=== PATIENT | female | born 1960 | race Caucasian/White ===

== ENCOUNTER → 2017-04-20 | Outpatient (CLI) | payer OTHER ==
[~2017-04-20] MED LIST: ASP325TEC PO; CA C1TAB26 PO; CALC-80 PO; GBPN100C PO; LETR2.5T4 PO; LNS30CCR PO; MULT1CAP27 PO
[2017-04-20 13:08] LABS: BASOPHILS % (AUTO) 0 % (0-10); EOSINOPHILS % (AUTO) 1 % (0-10); LYMPHOCYTES % (AUTO) 41 % (12-44); MEAN CORPUSCULAR HEMOGLOBIN 31 PG (25-34); MEAN CORPUSCULAR HGB CONC 34 G/DL (32-36); MEAN CORPUSCULAR VOLUME 91 FL (80-99); MEAN PLATELET VOLUME 9.7 FL (7.4-10.4); MONOCYTES # (AUTO) 0.4 X 10^3 (0.0-1.0); MONOCYTES % (AUTO) 9 % (0-12); NEUTROPHILS # (AUTO) 2.3 X 10^3 (1.8-7.8); NEUTROPHILS % (AUTO) 49 % (42-75); PLATELET COUNT 223 10^3/uL (130-400); RED BLOOD COUNT 4.23 10^6/uL (4.35-5.85); RED CELL DISTRIBUTION WIDTH 12.8 % (10.0-14.5); WHITE BLOOD COUNT 4.8 10^3/uL (4.3-11.0)
[2017-04-20 13:39] LABS: ALANINE AMINOTRANSFERASE 19 U/L (0-55); ALBUMIN 4.5 GM/DL (3.2-4.5); ANION GAP 10 MMOL/L (5-14); ASPARTATE AMINO TRANSFERASE 24 U/L (5-34); BILIRUBIN,TOTAL 0.3 MG/DL (0.1-1.0); BLOOD UREA NITROGEN 16 MG/DL (7-18); BUN/CREATININE RATIO 19; CALCIUM 10.3 MG/DL (8.5-10.1); CARBON DIOXIDE 27 MMOL/L (21-32); CHLORIDE 105 MMOL/L (98-107); CREATININE SERUM 0.85 MG/DL (0.60-1.30); GFR ESTIMATED > 60; GLUCOSE 99 MG/DL (70-105); POTASSIUM 4.3 MMOL/L (3.6-5.0); SODIUM 142 MMOL/L (135-145); TOTAL PROTEIN 7.2 GM/DL (6.4-8.2)
== END ==
LOC: ONC 12:49
PROVIDERS: ATTEND Nurse Practitioner Adult Health
DX: Z08 Encounter for follow-up examination after completed treatment for malignant neoplasm (principal); Z85.3 Personal history of malignant neoplasm of breast; M85.88 Other specified disorders of bone density and structure, other site
CPT/HCPCS: 36415; 80053; 85025; 99213

== ENCOUNTER → 2017-05-18 | Outpatient (CLI) | payer OTHER ==
--- NOTE | 2017-05-18 21:29 | Diagnostic Imaging Report ---
Right breast diagnostic mammogram with tomography. The current study was also evaluated with a Computer Aided Detection (CAD) system. INDICATION: History of left breast cancer status post mastectomy. COMPARISON: 04/24/16. FINDINGS: The right breast is composed of heterogeneously dense parenchyma which may decrease mammographic sensitivity. There are punctate calcifications seen. No mass, architectural distortion or suspicious cluster of calcification is identified with overall appearance of the right breast similar to prior exams. IMPRESSION: Stable mammographic findings with no evidence of malignancy. Dense breasts tissue may obscure subtle underlying abnormality, however. Self screening exam and clinical screening in addition to annual screening mammogram is recommended. ACR BI-RADS Category 2: Benign findings. Result letter will be mailed to the patient. Note: At least 10% of breast cancer is not imaged by mammography. Dictated by: Dictated on workstation # [id number]
== END ==
LOC: RAD 10:27
PROVIDERS: ATTEND Internal Medicine Hematology & Oncology
DX: C50.812 Malignant neoplasm of overlapping sites of left female breast (principal); Z90.12 Acquired absence of left breast and nipple

== ENCOUNTER → 2018-04-20 | Outpatient (CLI) | payer OTHER ==
[2018-04-20 15:09] LABS: BASOPHILS % (AUTO) 0 % (0-10); EOSINOPHILS % (AUTO) 1 % (0-10); HEMATOCRIT 36 % (35-52); HEMOGLOBIN 12.6 G/DL (11.5-16.0); LYMPHOCYTES # (AUTO) 1.6 X 10^3 (1.0-4.0); LYMPHOCYTES % (AUTO) 36 % (12-44); MEAN CORPUSCULAR HEMOGLOBIN 32 PG (25-34); MEAN CORPUSCULAR HGB CONC 35 G/DL (32-36); MEAN CORPUSCULAR VOLUME 91 FL (80-99); MEAN PLATELET VOLUME 10.1 FL (7.4-10.4); MONOCYTES # (AUTO) 0.5 X 10^3 (0.0-1.0); MONOCYTES % (AUTO) 10 % (0-12); NEUTROPHILS # (AUTO) 2.4 X 10^3 (1.8-7.8); NEUTROPHILS % (AUTO) 53 % (42-75); PLATELET COUNT 211 10^3/uL (130-400); RED BLOOD COUNT 3.97 10^6/uL (4.35-5.85); RED CELL DISTRIBUTION WIDTH 12.5 % (10.0-14.5); WHITE BLOOD COUNT 4.6 10^3/uL (4.3-11.0)
[2018-04-20 15:30] LABS: ALANINE AMINOTRANSFERASE 23 U/L (0-55); ALBUMIN 4.6 GM/DL (3.2-4.5); ALKALINE PHOSPHATASE 68 U/L (40-136); BILIRUBIN,TOTAL 0.3 MG/DL (0.1-1.0); BUN/CREATININE RATIO 18; CALCIUM 10.1 MG/DL (8.5-10.1); CARBON DIOXIDE 26 MMOL/L (21-32); CHLORIDE 106 MMOL/L (98-107); CREATININE SERUM 0.87 MG/DL (0.60-1.30); GFR ESTIMATED > 60; GLUCOSE 95 MG/DL (70-105); POTASSIUM 4.9 MMOL/L (3.6-5.0); SODIUM 139 MMOL/L (135-145); TOTAL PROTEIN 7.1 GM/DL (6.4-8.2)
== END ==
LOC: ONC 14:47
PROVIDERS: ATTEND Internal Medicine Hematology & Oncology
DX: Z08 Encounter for follow-up examination after completed treatment for malignant neoplasm (principal); Z85.3 Personal history of malignant neoplasm of breast; M85.80 Other specified disorders of bone density and structure, unspecified site; Z79.82 Long term (current) use of aspirin; Z79.899 Other long term (current) drug therapy; Z90.12 Acquired absence of left breast and nipple; Z92.21 Personal history of antineoplastic chemotherapy
CPT/HCPCS: 80053; 85025; 99213

== ENCOUNTER → 2018-06-10 | Outpatient (CLI) | payer OTHER ==
--- NOTE | 2018-06-10 09:17 | Diagnostic Imaging Report ---
Indication: Screening for osteoporosis. Correlation is made with prior exam from 08/26/2013. Bone mineral analysis of the lumbar spine and both hips was performed. Bone mineral density lumbar spine L2-L4 is 1.170 with T score -0.2. This compares with 1.168 and -0.1. Bone mineral density left femoral neck is 0.836 with T score -1.5. This compares with 0.864 and -1.2. Bone mineral density right femoral neck is 0.831 with T score -1.5. This compares to 0.860 and -1.3. Impression: Normal bone mineral density of the lumbar spine with osteopenia of bilateral femoral necks. Dictated by: Dictated on workstation # [id number]
--- NOTE | 2018-06-10 12:42 | Diagnostic Imaging Report ---
Indication: Routine screening. Comparison is made with prior mammogram from 05/18/2017 and 04/24/2016. 2-D and 3-D unilateral right screening mammography was performed with CAD. The right breast is heterogeneously dense, limiting the sensitivity of mammography. The overall parenchymal pattern appears stable. No mass or malignant-appearing microcalcifications are seen. The right axilla is unremarkable. Impression: BI-RADS category 1 No mammographic features suspicious for malignancy are identified. ACR BI-RADS Category 1: Negative. Result letter will be mailed to the patient. Note: At least 10% of breast cancer is not imaged by mammography. Dictated by: Dictated on workstation # [id number]
== END ==
LOC: RAD 07:49
PROVIDERS: ATTEND Internal Medicine Hematology & Oncology
DX: Z12.31 Encounter for screening mammogram for malignant neoplasm of breast (principal); Z13.820 Encounter for screening for osteoporosis; M85.89 Other specified disorders of bone density and structure, multiple sites; Z85.3 Personal history of malignant neoplasm of breast; Z78.0 Asymptomatic menopausal state
CPT/HCPCS: 77080

== ENCOUNTER → 2019-04-19 | Outpatient (CLI) | payer OTHER ==
[~2019-04-19] MED LIST changes: +ACHD5005 PO; +AMOX-358 PO
[2019-04-19 14:59] LABS: BASOPHILS % (AUTO) 1 % (0-10); EOSINOPHILS % (AUTO) 0 % (0-10); HEMATOCRIT 37 % (35-52); HEMOGLOBIN 12.2 G/DL (11.5-16.0); LYMPHOCYTES # (AUTO) 1.8 X 10^3 (1.0-4.0); LYMPHOCYTES % (AUTO) 37 % (12-44); MEAN CORPUSCULAR HEMOGLOBIN 30 PG (25-34); MEAN CORPUSCULAR HGB CONC 33 G/DL (32-36); MEAN CORPUSCULAR VOLUME 91 FL (80-99); MONOCYTES # (AUTO) 0.6 X 10^3 (0.0-1.0); MONOCYTES % (AUTO) 12 % (0-12); NEUTROPHILS # (AUTO) 2.5 X 10^3 (1.8-7.8); NEUTROPHILS % (AUTO) 50 % (42-75); PLATELET COUNT 201 10^3/uL (130-400); RED CELL DISTRIBUTION WIDTH 12.4 % (10.0-14.5)
[2019-04-19 15:22] LABS: ALANINE AMINOTRANSFERASE 22 U/L (0-55); ALBUMIN 4.4 GM/DL (3.2-4.5); ALKALINE PHOSPHATASE 78 U/L (40-136); BILIRUBIN,TOTAL 0.3 MG/DL (0.1-1.0); BUN/CREATININE RATIO 20; CALCIUM 9.9 MG/DL (8.5-10.1); CARBON DIOXIDE 27 MMOL/L (21-32); CHLORIDE 107 MMOL/L (98-107); CREATININE SERUM 0.85 MG/DL (0.60-1.30); GFR ESTIMATED > 60; GLUCOSE 92 MG/DL (70-105); POTASSIUM 4.7 MMOL/L (3.6-5.0); SODIUM 143 MMOL/L (135-145)
== END ==
LOC: ONC 14:46
PROVIDERS: ATTEND Internal Medicine Hematology & Oncology
DX: Z08 Encounter for follow-up examination after completed treatment for malignant neoplasm (principal); Z85.3 Personal history of malignant neoplasm of breast; M85.80 Other specified disorders of bone density and structure, unspecified site; Z79.82 Long term (current) use of aspirin; Z79.899 Other long term (current) drug therapy; Z90.12 Acquired absence of left breast and nipple; Z92.21 Personal history of antineoplastic chemotherapy
CPT/HCPCS: 36415; 80053; 82306; 85025; 99213

== ENCOUNTER 2019-04-24 07:18 | Day surgery (SDC) | payer OTHER ==
[~2019-04-24] VITALS: Ht 167.6 cm; Wt 63.5 kg
[2019-04-24] VITALS (8 sets, daily range): BP systolic 90–113; BP diastolic 45–73
[~2019-04-24 07:18] MED LIST changes: -ACHD5005 PO; -AMOX-358 PO
[2019-04-24] MEDS ORDERED: LACTATED RINGERS 1,000 ML IV ONE (07:38)
[2019-04-24] MEDS ORDERED: fentaNYL INJECTION 100 MCG/2 ML AMP IVP ONE ×2 (07:45→08:30)
[2019-04-24] MEDS ORDERED: ONDANSETRON 4 MG/2 ML (SDV) Z0FRAN IVP ONE (07:45)
[2019-04-24 07:52] LABS: BASOPHILS % (AUTO) 0 % (0-10); EOSINOPHILS % (AUTO) 0 % (0-10); HEMATOCRIT 40 % (35-52); HEMOGLOBIN 13.6 G/DL (11.5-16.0); LYMPHOCYTES # (AUTO) 1.1 X 10^3 (1.0-4.0); LYMPHOCYTES % (AUTO) 6 % (12-44); MEAN CORPUSCULAR HEMOGLOBIN 31 PG (25-34); MEAN CORPUSCULAR HGB CONC 34 G/DL (32-36); MEAN CORPUSCULAR VOLUME 90 FL (80-99); MEAN PLATELET VOLUME 10.2 FL (7.4-10.4); MONOCYTES # (AUTO) 1.2 X 10^3 (0.0-1.0); MONOCYTES % (AUTO) 7 % (0-12); NEUTROPHILS # (AUTO) 15.5 X 10^3 (1.8-7.8); NEUTROPHILS % (AUTO) 87 % (42-75); PLATELET COUNT 192 10^3/uL (130-400); RED CELL DISTRIBUTION WIDTH 12.5 % (10.0-14.5); WHITE BLOOD COUNT 17.7 10^3/uL (4.3-11.0)
--- NOTE | 2019-04-24 07:56 | ED Abdominal Pain ---
General Chief Complaint: Abdominal/GI Problems Stated Complaint: ABD PAIN Nursing Triage Note: Ambulatory to rm 5 with complaint of abdominal pain that began on Thursday. Pt reports diffuse lower abdominal pain that is now worse on the R side. Pt reports fever of 101 at home yesterday. Pt reports decreased appetite, and last BM this morning. Pt denies dysuria and frequency. Pt reports starting omeprazole Thursday. Sepsis Screen: No Definite Risk (ASHLEY GRIFFITH) History of Present Illness Date Seen by Provider: Apr 24, 2019 Time Seen by Provider: 07:40 Initial Comments A 58 yo Female presents to the ER complaining of lower abdominal pain. The pain started on Thursday and has not improved. The pain does not radiate and is located diffusely throughout the RLQ and LLQ. The pain does come and go and currently the pain is a 3/10. Ibuprofen does seem to make it better. She reports having fevers, and occasional chills. (ASHLEY GRIFFITH) Time Seen by Provider: 07:22 Initial Comments This patient was interviewed, seen, and examined by me along with Ashley Griffith, MS 3. I agree with MS history history with the following additions and corrections. Patient states pain started 3 days ago. She has had associated nausea and loss of appetite. Pain seems to extend throughout the lower abdomen but most concentrated in the right lower quadrant. She reports pain was a 10 on the pain scale at its worst. She has had some minor back aching associated with this pain. She denies any changes in bowel movements with no constipation or diarrhea. She reports a fever at home yesterday up to 101. She has had no urinary symptoms such as dysuria or hematuria. She is afebrile at present. Pain is waxing and waning but has been constantly present for the past 3 days. (BRENDA RANDLE MD) Allergies and Home Medications Allergies Coded Allergies: Sulfa (Sulfonamide Antibiotics) (Unverified Allergy, Mild, CONFUSION, 03/05/09) Home Medications Aspirin 325 Mg Tabec, 325 MG PO DAILY, (Reported) Ca Cmb No.1/Vit D3/B-6/Fa/B12 1 Each Tablet, 1,000 UNITS PO DAILY, (Reported) Calcium Carbonate/Vitamin D3 1 Each Tablet, 1 EACH PO BID, (Reported) Gabapentin 100 Mg Cap, 100 MG PO DAILY, (Reported) Lansoprazole 30 Mg Cap, 30 MG PO DAILY, (Reported) Letrozole 2.5 Mg Tablet, 2.5 MG PO DAILY, (Reported) Multivitamins 1 Each Capsule, 1 EACH PO DAILY, (Reported) Patient Home Medication List Home Medication List Reviewed: Yes (BRENDA RANDLE MD) Review of Systems Review of Systems Constitutional: chills, fever EENTM: No Blurred Vision; Other (No acute changes in vision or hearing) Respiratory: Denies Shortness of Air Cardiovascular: Denies Chest Pain Gastrointestinal: Abdominal Pain; Denies Blood Streaked Stools, Denies Diarrhea; Nausea Genitourinary: Denies Burning, Denies Discharge, Denies Pain (ASHLEY GRIFFITH) Musculoskeletal: no symptoms reported Skin: no symptoms reported Psychiatric/Neurological: No Symptoms Reported Endocrine: No Symptoms Reported (BRENDA RANDLE MD) Past Izklkkw-Bjbmoe-Fnpgiy Hx Past Med/Social Hx: Reviewed and Corrections made (BRENDA RANDLE MD) Patient Social History Alcohol Use: Denies Use Recreational Drug Use: No Smoking Status: Never a Smoker 2nd Hand Smoke Exposure: No Recent Foreign Travel: No Contact w/Someone Who Travel: No Recent Infectious Disease Expo: No Recent Hopitalizations: No Physical Abuse: No Sexual Abuse: No (ASHLEY GRIFFITH) Past Medical History Surgeries: Yes (l side mastectomy) Respiratory: No Cardiac: Yes Irregular Heartbeat Neurological: No Reproductive Disorders: No Sexually Transmitted Disease: No Gastrointestinal: No Musculoskeletal: No Endocrine: No Cancer: Yes Breast Did You Recieve Any Treatments: Yes What Type of Treatment Did You: Surgical Intervention Psychosocial: No Blood Disorders: No (ASHLEY GRIFFITH) Cardiac (heart catheter in 2010 was no obstructive disease) Gastrointestinal: Yes Gastroesophageal Reflux What Type of Treatment Did You: Chemotherapy (BRENDA RANDLE MD) Physical Exam Vital Signs Vital Signs - First Documented 04/24/19 07:20 Temp 99.4 Pulse 90 Resp 14 B/P (MAP) 128/68 (88) Pulse Ox 99 O2 Delivery Room Air (BRENDA RANDLE MD) Vital Signs Capillary Refill : Less Than 3 Seconds (ASHLEY GRIFFITH) Height/Weight/BMI Height: 5'6.00" Weight: 140lbs. oz. [id number]; BMI Method:Stated (ASHLEY GRIFFITH) General Appearance: WD/WN, no apparent distress HEENT: PERRL/EOMI, normal ENT inspection, other (oropharynx somewhat dry) Neck: normal inspection Respiratory: lungs clear, normal breath sounds, no respiratory distress, no accessory muscle use Cardiovascular: regular rate, rhythm, no edema, no murmur Gastrointestinal: normal bowel sounds, soft, tenderness (throughout the lower abdomen, most prominent in the right lower quadrant. Psoas sign negative. Slight rebound tenderness. Rovsing sign and positive.) Extremities: normal inspection, no pedal edema Neurologic/Psychiatric: setter helper II-XII nml as tested, no motor/sensory deficits, alert, normal mood/affect, oriented x 3 Skin: normal color, warm/dry (BRENDA RANDLE MD) Focused Exam Lactate Level 04/24/19 09:55: Lactic Acid Level 2.38*H (BRENDA RANDLE MD) Lactic Acid Level Laboratory Tests Test 04/24/19 09:55 Lactic Acid Level 2.38 MMOL/L (0.50-2.00) *H (BRENDA RANDLE MD) Progress/Results/Core Measures Results/Orders Lab Results Laboratory Tests Test 04/24/19 07:23 04/24/19 08:11 04/24/19 09:55 Range/Units White Blood Count 17.7 H 4.3-11.0 10^3/uL Red Blood Count 4.42 4.35-5.85 10^6/uL Hemoglobin 13.6 11.5-16.0 G/DL Hematocrit 40 35-52 % Mean Corpuscular Volume 90 80-99 FL Mean Corpuscular Hemoglobin 31 25-34 PG Mean Corpuscular Hemoglobin Concent 34 32-36 G/DL Red Cell Distribution Width 12.5 10.0-14.5 % Platelet Count 192 130-400 10^3/uL Mean Platelet Volume 10.2 7.4-10.4 FL Neutrophils (%) (Auto) 87 H 42-75 % Lymphocytes (%) (Auto) 6 L 12-44 % Monocytes (%) (Auto) 7 0-12 % Eosinophils (%) (Auto) 0 0-10 % Basophils (%) (Auto) 0 0-10 % Neutrophils # (Auto) 15.5 H 1.8-7.8 X 10^3 Lymphocytes # (Auto) 1.1 1.0-4.0 X 10^3 Monocytes # (Auto) 1.2 H 0.0-1.0 X 10^3 Eosinophils # (Auto) 0.0 0.0-0.3 10^3/uL Basophils # (Auto) 0.0 0.0-0.1 10^3/uL Neutrophils % (Manual) 85 % Lymphocytes % (Manual) 8 % Monocytes % (Manual) 6 % Band Neutrophils 1 % Blood Morphology Comment NORMAL Sodium Level 140 135-145 MMOL/L Potassium Level 4.0 3.6-5.0 MMOL/L Chloride Level 102 98-107 MMOL/L Carbon Dioxide Level 23 21-32 MMOL/L Anion Gap 15 H 5-14 MMOL/L Blood Urea Nitrogen 15 7-18 MG/DL Creatinine 0.87 0.60-1.30 MG/DL Estimat Glomerular Filtration Rate > 60 BUN/Creatinine Ratio 17 Glucose Level 96 70-105 MG/DL Calcium Level 10.2 H 8.5-10.1 MG/DL Corrected Calcium 9.8 8.5-10.1 MG/DL Total Bilirubin 0.9 0.1-1.0 MG/DL Aspartate Amino Transf (AST/SGOT) 21 5-34 U/L Alanine Aminotransferase (ALT/SGPT) 20 0-55 U/L Alkaline Phosphatase 85 40-136 U/L Total Protein 7.8 6.4-8.2 GM/DL Albumin 4.5 3.2-4.5 GM/DL Lipase 25 8-78 U/L Urine Color YELLOW Urine Clarity CLEAR Urine pH 5 5-9 Urine Specific [place] 1.020 1.016-1.022 Urine Protein 2+ H NEGATIVE Urine Glucose (UA) NEGATIVE NEGATIVE Urine Ketones 4+ H NEGATIVE Urine Nitrite NEGATIVE NEGATIVE Urine Bilirubin NEGATIVE NEGATIVE Urine Urobilinogen 1 NORMAL MG/DL Urine Leukocyte Esterase 2+ H NEGATIVE Urine RBC (Auto) 3+ H NEGATIVE Urine RBC NONE /HPF Urine WBC 0-2 /HPF Urine Squamous Epithelial Cells 2-5 /HPF Urine Crystals NONE /LPF Urine Bacteria TRACE /HPF Urine Casts NONE /LPF Urine Mucus NEGATIVE /LPF Urine Culture Indicated NO Lactic Acid Level 2.38 *H 0.50-2.00 MMOL/L (BRENDA RANDLE MD) My Orders Orders - BRENDA RANDLE MD Fentanyl Injection (Sublimaze Injection (04/24/19 07:45) Ondansetron Injection (Zofran Injectio (04/24/19 07:45) Cbc With Automated Diff (04/24/19 07:38) Comprehensive Metabolic Panel (04/24/19 07:38) Lipase (04/24/19 07:38) Ua Culture If Indicated (04/24/19 07:38) Ed Iv/Invasive Line Start (04/24/19 07:38) Lactated Ringers (Lr 1000 Ml Iv Solution (04/24/19 07:38) Manual Differential (04/24/19 07:23) Fentanyl Injection (Sublimaze Injection (04/24/19 08:30) Ct Abd/Pelv W (Appendicitis) (04/24/19 08:53) Blood Culture (04/24/19 09:47) Lactic Acid Analyzer (04/24/19 09:47) Piperacillin/Tazobactam (Bulk) (Zosyn In (04/24/19 10:00) Morphine Injection (Morphine Injection (04/24/19 11:02) Succinylcholine Injection (Succinylcholi (04/24/19 11:16) Rocuronium 5 Ml Syringe (Rocuronium 5 Ml (04/24/19 11:16) Propofol Injection (Diprivan Injection) (04/24/19 11:16) Dexamethasone Injection (Decadron Inject (04/24/19 11:16) Ondansetron Injection (Zofran Injectio (04/24/19 11:16) Sevoflurane (15 Min) Inhal Peggy (Ultane ( (04/24/19 11:16) Fentanyl Injection (Sublimaze Injection (04/24/19 11:16) Midazolam Injection (Versed Injection) (04/24/19 11:17) (BRENDA RANDLE MD) Medications Given in ED Current Medications Medications Dose Ordered Sig/Harman Route Start Time Stop Time Status Last Admin Dose Admin Fentanyl Citrate 50 mcg ONCE ONCE IVP 04/24/19 07:45 04/24/19 07:46 DC 04/24/19 07:57 50 MCG Fentanyl Citrate 75 mcg ONCE ONCE IVP 04/24/19 08:30 04/24/19 08:31 DC 04/24/19 08:28 75 MCG Lactated Ringer's 1,000 ml @ 0 mls/hr Q0M ONCE IV 04/24/19 07:38 04/24/19 07:45 DC 04/24/19 07:54 1,000 MLS/HR Morphine Sulfate 10 mg STK-MED ONCE .ROUTE 04/24/19 11:02 04/24/19 11:10 DC 04/24/19 11:12 2 MG Ondansetron HCl 4 mg ONCE ONCE IVP 04/24/19 07:45 04/24/19 07:46 DC 04/24/19 07:51 4 MG Piperacillin Sod/ Tazobactam Sod 4.5 gm/Sodium Chloride 120 ml @ 240 mls/hr ONCE ONCE IV 04/24/19 10:00 04/24/19 10:29 DC 04/24/19 10:08 240 MLS/HR (BRENDA RANDLE MD) Vital Signs/I&O 04/24/19 07:20 Temp 99.4 Pulse 90 Resp 14 B/P (MAP) 128/68 (88) Pulse Ox 99 O2 Delivery Room Air (BRENDA RANDLE MD) Blood Pressure Mean: 88 Progress Progress Note : Time: 09:56 Progress Note Workup was pursued with labs and UA. Patient was found to have leukocytosis. Further evaluation was performed with CT scan which revealed appendicitis with perforation. Patient is being treated for sepsis related to perforated appendicitis. Her initial antibiotic therapy as with Zosyn in the ER. Blood cultures and lactic acid are being sent prior to antibiotic administration. She has received a total of 125 g of fentanyl. Zofran 4 mg IV was given for nausea. IV fluids were administered. Case was discussed with Dr. Mackey who plans to take her to surgery from the ER. (BRENDA RANDLE MD) Diagnostic Imaging Diagonstic Imaging: CT Plain Films/CT/US/NM/MRI: abdomen, pelvis Comments CT abdomen and pelvis viewed by me and report reviewed. See report below: NAME: ANGELINA MEJIA [facility] REC#: [id number] PT STATUS: REG ER : 1960 PHYSICIAN: BRENDA RANDLE MD ADMIT DATE: 04/24/19/ER Draft Date of Exam:04/24/19 CT ABD/PELV W (APPENDICITIS) PROCEDURE: CT abdomen and pelvis with contrast, rule out appendicitis. TECHNIQUE: Multiple contiguous axial images were obtained through the abdomen and pelvis after the administration of intravenous contrast. INDICATION: Lower abdominal pain, greater on the right side, fever. EXAMINATION: CT abdomen and pelvis with contrast dated 04/24/2019 FINDINGS: Diffuse inflammation is seen in the right lower quadrant with a small amount of free fluid noted. The appendix is diffusely enlarged and contains a calcification consistent with an appendicolith along its origin. The entire course of the appendix is diffusely distended with surrounding fluid and inflammatory change. Along the course of the appendix is a tiny collection of air which is likely a small contained rupture. A discrete measurable abscess is not appreciated at this time. Adjacent small bowel loops are slightly prominent likely reactive in nature. No free air seen in the remaining abdomen. The abdominal viscera demonstrates no acute abnormalities. There are multiple hypodensities throughout the liver, most of which are too small to characterize, others are likely cysts. The gallbladder and spleen normal. The adrenal glands unremarkable. Pancreas normal. Kidneys within normal limits. Small amount of free fluid in the pelvis. Linear hyperdensities within the lower pelvis likely vascular in nature. No acute osseous normality is appreciated. Degenerative findings noted in the osseous structures. Visualized lung bases unremarkable. IMPRESSION: 1. Findings consistent with acute appendicitis. Diffuse inflammation in the right lower quadrant is seen with a small contained perforation as noted. No abscess at this time. Called to Dr. Coronado at 9:39 a.m. by cvb. Dictated on workstation # [id number] Dict: [birth year]24 Trans: 04/24/19 0940 CVB [id number] Interpreted by: EJ LUJAN MD (BRENDA RANDLE MD) Departure Communication (Admissions) Time/Spoke to Admitting Phy: 09:55 Dr. Mackey (BRENDA RANDLE MD) Impression Primary Impression: Acute appendicitis with perforation and generalized peritonitis Qualified Codes: K35.20 - Acute appendicitis with generalized peritonitis, without abscess Additional Impression: Sepsis Qualified Codes: A41.9 - Sepsis, unspecified organism Disposition: 09 ADMITTED INPATIENT Condition: Improved Admissions Decision to Admit Reason: Admit from ER (General) Decision to Admit/Date: Apr 24, 2019 Time/Decision to Admit Time: 09:50 (BRENDA RANDLE MD) Departure-Patient Inst. Referrals: CHARLOTTE LOWRY MD (PCP/Family) Primary Care Physician ASHLEY GRIFFITH [facility] Apr 24, 2019 07:56 BRENDA RANDLE MD Apr 24, 2019 08:43
[2019-04-24 08:12] LABS: ALANINE AMINOTRANSFERASE 20 U/L (0-55); ALBUMIN 4.5 GM/DL (3.2-4.5); ALKALINE PHOSPHATASE 85 U/L (40-136); BILIRUBIN,TOTAL 0.9 MG/DL (0.1-1.0); BUN/CREATININE RATIO 17; CALCIUM 10.2 MG/DL (8.5-10.1); CARBON DIOXIDE 23 MMOL/L (21-32); CHLORIDE 102 MMOL/L (98-107); CREATININE SERUM 0.87 MG/DL (0.60-1.30); GFR ESTIMATED > 60; GLUCOSE 96 MG/DL (70-105); LIPASE 25 U/L (8-78); SODIUM 140 MMOL/L (135-145); TOTAL PROTEIN 7.8 GM/DL (6.4-8.2)
[2019-04-24 08:20] LABS: BILIRUBIN,URINE NEGATIVE (NEGATIVE); CLARITY,URINE CLEAR; COLOR,URINE YELLOW; GLUCOSE, URINE (UA) NEGATIVE (NEGATIVE); KETONES,URINE 4+ (NEGATIVE); LEUKOCYTE ESTERASE ,URINE 2+ (NEGATIVE); NITRITE,URINE NEGATIVE (NEGATIVE); PH,URINE 5 (5-9); PROTEIN,URINE 2+ (NEGATIVE); UROBILINOGEN,URINE 1 MG/DL (NORMAL)
[2019-04-24 08:38] LABS: BACTERIA,URINE TRACE /HPF; WBC,URINE 0-2 /HPF
[2019-04-24 08:47] LABS: BAND NEUTROPHILS 1 %; LYMPHOCYTES % (MANUAL) 8 %; MONOCYTES % (MANUAL) 6 %; NEUTROPHILS % (MANUAL) 85 %
[2019-04-24 08:48] LABS: RBC MORPH NORMAL
--- NOTE | 2019-04-24 09:41 | Diagnostic Imaging Report ---
PROCEDURE: CT abdomen and pelvis with contrast, rule out appendicitis. TECHNIQUE: Multiple contiguous axial images were obtained through the abdomen and pelvis after the administration of intravenous contrast. INDICATION: Lower abdominal pain, greater on the right side, fever. EXAMINATION: CT abdomen and pelvis with contrast dated 04/24/2019 FINDINGS: Diffuse inflammation is seen in the right lower quadrant with a small amount of free fluid noted. The appendix is diffusely enlarged and contains a calcification consistent with an appendicolith along its origin. The entire course of the appendix is diffusely distended with surrounding fluid and inflammatory change. Along the course of the appendix is a tiny collection of air which is likely a small contained rupture. A discrete measurable abscess is not appreciated at this time. Adjacent small bowel loops are slightly prominent likely reactive in nature. No free air seen in the remaining abdomen. The abdominal viscera demonstrates no acute abnormalities. There are multiple hypodensities throughout the liver, most of which are too small to characterize, others are likely cysts. The gallbladder and spleen normal. The adrenal glands unremarkable. Pancreas normal. Kidneys within normal limits. Small amount of free fluid in the pelvis. Linear hyperdensities within the lower pelvis likely vascular in nature. No acute osseous normality is appreciated. Degenerative findings noted in the osseous structures. Visualized lung bases unremarkable. IMPRESSION: 1. Findings consistent with acute appendicitis. Diffuse inflammation in the right lower quadrant is seen with a small contained perforation as noted. No abscess at this time. Called to Dr. Coronado at 9:39 a.m. by cvb. Dictated by: Dictated on workstation # [id number]
--- NOTE | 2019-04-24 09:44 | NUR ---
Pt removed jewelry and gave to in preparation for surgery.
[2019-04-24] MEDS ORDERED: PIPERACILLIN/TAZOBACTAM (BULK) 4.5 GM in NS (IVPB) 100 ML IV ONE (10:00)
--- NOTE | 2019-04-24 10:55 | NUR ---
Dr Mackey in room with pt.
[2019-04-24] MEDS ORDERED: morphine INJ 10 MG/ML 1ML (SYR OR VIAL) ONE (11:02)
--- NOTE | 2019-04-24 11:06 | NUR ---
verbal order from Dr. Mackey for Morphine 2 mg at this time.
[2019-04-24] MEDS ORDERED: fentaNYL INJECTION 100 MCG/2 ML AMP ONE (11:16)
[2019-04-24] MEDS ORDERED: ROCURONIUM 10 MG/ML 5 ML SYRINGE IV ONE (11:16)
[2019-04-24] MEDS ORDERED: proPOfol 200 MG/20 ML (DIPRIVAN) VIAL IV ONE (11:16)
[2019-04-24] MEDS ORDERED: ONDANSETRON 4 MG/2 ML (SDV) Z0FRAN ONE (11:16)
[2019-04-24] MEDS ORDERED: DEXAMETHASONE 10 MG/ML (DECADRON) 1 ML VIAL ONE (11:16)
[2019-04-24] MEDS ORDERED: SEVOFLURANE (ULTANE) 15 ML INHAL SOLN ONE (11:16)
[2019-04-24] MEDS ORDERED: SUCCINYLCHOLINE INJ 100 MG/5 ML SYR ONE (11:16)
[2019-04-24] MEDS ORDERED: MIDAZOLAM 2 MG/2 ML (VERSED) VIAL ONE (11:17)
--- NOTE | 2019-04-24 11:17 | Consultation - Surgery ---
History of Present Illness History of Present Illness Patient Consulted On(parveen/time) 04/24/19 11:12 Time Seen by Provider: 10:48 History of Present Illness Surgery asked to consult regarding appendicitis. HPI per ED: This patient was interviewed, seen, and examined by me along with Mason Griffith, MS 3. I agree with MS history history with the following additions and corrections. Patient states pain started 3 days ago. She has had associated nausea and loss of appetite. Pain seems to extend throughout the lower abdomen but most concentrated in the right lower quadrant. She reports pain was a 10 on the pain scale at its worst. She has had some minor back aching associated with this pain. She denies any changes in bowel movements with no constipation or diarrhea. She reports a fever at home yesterday up to 101. She has had no urinary symptoms such as dysuria or hematuria. She is afebrile at present. Pain is waxing and waning but has been constantly present for the past 3 days. When I spoke to pt she stated the pain started Thursday morning and she was trying to ignore it. It got a little better this am and then got bad again. She has not been able to eat anything since Thursday. She describes a constant sharp pain across lower abdomen. Nothing but the pain medicine has made it any better. It is worse when she moves and bumps on the car ride. Allergies and Home Medications Allergies Coded Allergies: Sulfa (Sulfonamide Antibiotics) (Unverified Allergy, Mild, CONFUSION, 03/05/09) Home Medications Aspirin 325 Mg Tabec, 325 MG PO DAILY, (Reported) Ca Cmb No.1/Vit D3/B-6/Fa/B12 1 Each Tablet, 1,000 UNITS PO DAILY, (Reported) Calcium Carbonate/Vitamin D3 1 Each Tablet, 1 EACH PO BID, (Reported) Gabapentin 100 Mg Cap, 100 MG PO DAILY, (Reported) Lansoprazole 30 Mg Cap, 30 MG PO DAILY, (Reported) Letrozole 2.5 Mg Tablet, 2.5 MG PO DAILY, (Reported) Multivitamins 1 Each Capsule, 1 EACH PO DAILY, (Reported) Patient Home Medication List Home Medication List Reviewed: Yes Past Rpaejmd-Hzaazi-Zojcmi Hx Patient Social History Alcohol Use: Denies Use Recreational Drug Use: No Smoking Status: Never a Smoker 2nd Hand Smoke Exposure: No Recent Foreign Travel: No Contact w/Someone Who Travel: No Recent Infectious Disease Expo: No Recent Hopitalizations: No Surgeries History of Surgeries: Yes (l side mastectomy) Surgeries: Cardiac (heart catheter in 2010 was no obstructive disease) Respiratory History of Respiratory Disorde: No Cardiovascular History of Cardiac Disorders: Yes Cardiac Disorders: Irregular Heartbeat Neurological History of Neurological Disord: No Reproductive System Hx Reproductive Disorders: No Sexually Transmitted Disease: No Gastrointestinal History of Gastrointestinal Di: Yes Gastrointestinal Disorders: Gastroesophageal Reflux Musculoskeletal History of Musculoskeletal Dis: No Endocrine History of Endocrine Disorders: No Cancer History of Cancer: Yes Cancer: Breast Psychosocial History of Psychiatric Problem: No Blood Transfusions History of Blood Disorders: No Family Medical History Significant Family History: Other Conditions/Hx (Father had high cholesterol) Review of Systems-General Constitutional: chills, diaphoresis, malaise, weakness EENTM: No blurred vision, No double vision, No mouth pain, No mouth swelling, No epistaxis Respiratory: No cough, No dyspnea on exertion, No hemoptysis, No short of breath Cardiovascular: No chest pain, No edema, No palpitations Gastrointestinal: abdominal pain; No hematemesis, No jaundice; loss of appetite; No melena; nausea; No vomiting Genitourinary: No dysuria, No frequency, No hematuria Musculoskeletal: No joint pain, No joint swelling, No muscle pain, No muscle stiffness Skin: No change in color, No change in hair/nails, No lesions Psychiatric/Neurological: Denies Anxiety, Denies Depressed, Denies Seizure, Denies Tremors Other pt denies any hx of abnormal bleeding or bruising, no heat or cold intolerance Physical Exam-General Problems Physical Exam Vital Signs Vital Signs - First Documented 04/24/19 07:20 Temp 99.4 Pulse 90 Resp 14 B/P (MAP) 128/68 (88) Pulse Ox 99 O2 Delivery Room Air Capillary Refill : Less Than 3 Seconds General Appearance: WD/WN, moderate distress, thin Eyes: Bilateral Eye PERRL, Bilateral Eye EOMI HEENT: pharynx normal; No scleral icterus (R), No scleral icterus (L) Neck: non-tender, supple; No thyromegaly Respiratory: chest non-tender, lungs clear, normal breath sounds, no respiratory distress, no accessory muscle use Cardiovascular: regular rate, rhythm, no edema, no murmur Gastrointestinal: No no organomegaly, No no pulsatile mass, No distended; guarding (almost involuntary), tenderness (diffusely across lower abdomen, but more in right side), hernia (umbilical) Rectal: deferred Back: no CVA tenderness, no vertebral tenderness Extremities: normal range of motion, non-tender, normal inspection, no pedal edema, no calf tenderness Neurologic/Psychiatric: 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 II-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 nml as tested, no motor/sensory deficits, alert, normal mood/affect, oriented x 3 Skin: normal color, warm/dry Lymphatic: no adenopathy (neck, axilla or groin) Data Review Labs Laboratory Tests 04/24/19 07:23: White Blood Count 17.7H, Red Blood Count 4.42, Hemoglobin 13.6, Hematocrit 40, Mean Corpuscular Volume 90, Mean Corpuscular Hemoglobin 31, Mean Corpuscular Hemoglobin Concent 34, Red Cell Distribution Width 12.5, Platelet Count 192, Mean Platelet Volume 10.2, Neutrophils (%) (Auto) 87H, Lymphocytes (%) (Auto) 6L , Monocytes (%) (Auto) 7, Eosinophils (%) (Auto) 0, Basophils (%) (Auto) 0, Neutrophils # (Auto) 15.5H, Lymphocytes # (Auto) 1.1, Monocytes # (Auto) 1.2H, Eosinophils # (Auto) 0.0, Basophils # (Auto) 0.0, Neutrophils % (Manual) 85, Lymphocytes % (Manual) 8, Monocytes % (Manual) 6, Band Neutrophils 1, Blood Morphology Comment NORMAL, Sodium Level 140, Potassium Level 4.0, Chloride Level 102, Carbon Dioxide Level 23, Anion Gap 15H, Blood Urea Nitrogen 15, Creatinine 0.87, Estimat Glomerular Filtration Rate > 60, BUN/Creatinine Ratio 17, Glucose Level 96, Calcium Level 10.2H, Corrected Calcium 9.8, Total Bilirubin 0.9, Aspartate Amino Transf (AST/SGOT) 21, Alanine Aminotransferase (ALT/SGPT) 20, Alkaline Phosphatase 85, Total Protein 7.8, Albumin 4.5, Lipase 25 04/24/19 08:11: Urine Color YELLOW, Urine Clarity CLEAR, Urine pH 5, Urine Specific [place] 1.020, Urine Protein 2+H, Urine Glucose (UA) NEGATIVE, Urine Ketones 4+H, Urine Nitrite NEGATIVE, Urine Bilirubin NEGATIVE, Urine Urobilinogen 1, Urine Leukocyte Esterase 2+H, Urine RBC (Auto) 3+H, Urine RBC NONE, Urine WBC 0-2, Urine Squamous Epithelial Cells 2-5, Urine Crystals NONE, Urine Bacteria TRACE, Urine Casts NONE, Urine Mucus NEGATIVE, Urine Culture Indicated NO 04/24/19 09:55: Lactic Acid Level 2.38*H Assessment/Plan Assessment/Plan Assessment/Plan Acute Appendicitis probably ruptured Plan is NPO, IV fluids, pain control, anti-emetics, IV ABX. Will go to the OR for Laparoscopic Appendectomy possible open. Discussed risks and complications with pt and family; not limited to pain, bleeding, infection, scar and damage to intestine. All questions answered to their satisfaction. Pt will most likely stay over at least one night, depends on how bad the perforation is. VIVIENNE BUSTILLOS DO Apr 24, 2019 11:17
[2019-04-24] MEDS ORDERED: BUP/EPI 0.5% 1:200,000 (MARCAINE) 10ML VIAL IJ ONE (11:29)
[2019-04-24] MEDS ORDERED: PHENYLEPHRINE 100 MCG/ML 10 ML (ANESTHESIA) SYR ONE (11:42)
[2019-04-24] MEDS ORDERED: HYDROmorphone 2 MG/ML VIAL (DILAUDID) ONE (12:04)
[2019-04-24] MEDS ORDERED: NEOSTIGMINE 3 MG/3 ML VIAL ONE (12:44)
[2019-04-24] MEDS ORDERED: GLYCOPYRROLATE 0.2 MG/ML (ROBINUL) 2 ML VIAL ONE (12:44)
[2019-04-24] MEDS: KETOROLAC 30 MG/ML VIAL IVP SCH ×2 (13:00→18:45)
--- NOTE | 2019-04-24 13:04 | Progress Note-Post Operative ---
Post-Operative Progess Note Surgeon (s)/Gamewell Operator (s) Surgeon VIVIENNE BUSTILLOS DO Gamewell Operator: Elias Raygoza MS III Pre-Operative Diagnosis Acute Appy possibly ruptured Post-Operative Diagnosis Same Necrotic to base onto cecum Procedure & Operative Findings Date of Procedure 04/24/19 Procedure Performed/Findings Lap Appy with partial Cecectomy Anesthesia Type GET Estimated Blood Loss Estimated blood loss (mL): scant Specimens/Packing Specimens Removed appy with small portion of cecum VIVIENNE BUSTILLOS DO Apr 24, 2019 13:04
[2019-04-24] MEDS ORDERED: HYDROcodone/APAP 5 MG/325 MG (LORTAB) TAB PO PRN (13:15)
[2019-04-24] MEDS ORDERED: ONDANSETRON 4 MG/2 ML (SDV) Z0FRAN IVP PRN ×2 (13:15)
[2019-04-24] MEDS ORDERED: HYDROmorphone 2 MG/ML VIAL (DILAUDID) IV ONE (13:15)
[2019-04-24] MEDS: LACTATED RINGERS 1,000 ML IV SCH (15:15)
[2019-04-24] MEDS ORDERED: CATHETER FLUSH 10 ML SYR IV PRN (15:15)
[2019-04-24] MEDS: ACETAMINOPHEN 500 MG TAB (TYLENOL) PO SCH ×2 (15:34→23:40)
[2019-04-24] MEDS: PIPERACILLIN/TAZOBACTAM (BULK) 4.5 GM in NS (IVPB) 100 ML IV SCH ×2 (16:50→23:39)
[2019-04-25] VITALS: BP 89/52
[2019-04-25] MEDS: KETOROLAC 30 MG/ML VIAL IVP SCH ×2 (01:49→06:16)
[2019-04-25] MEDS: LACTATED RINGERS 1,000 ML IV SCH ×2 (02:44→08:07)
[2019-04-25 04:00] VITALS: BP 84/50
[2019-04-25] MEDS: ACETAMINOPHEN 500 MG TAB (TYLENOL) PO SCH (06:16)
[2019-04-25 08:00] VITALS: BP 100/62
[2019-04-25] MEDS ORDERED: PANTOPRAZOLE 40 MG (PROTONIX) VIAL IVP SCH (09:00)
[2019-04-25] MEDS: PIPERACILLIN/TAZOBACTAM (BULK) 4.5 GM in NS (IVPB) 100 ML IV SCH (09:08)
--- NOTE | 2019-04-25 09:50 | Progress Note - Surgery ---
ASHLEY ROMERO,MED STUDENT 04/25/19 0950: Subjective Date Seen by a Provider: Apr 25, 2019 Time Seen by a Provider: 09:10 Subjective/Events-last exam Pt feeling well, accompanied by . Admits mild midline, diffuse, abdominal incisional soreness that began last night. Thinks her abdomen might be slightly distended and has had a few bowel movements, all diarrhea. Review of Systems General: No Chills, No Night Sweats, No Fatigue, No Malaise Pulmonary: No Dyspnea, No Cough Cardiovascular: No: Chest Pain Gastrointestinal: Abdominal Pain, Diarrhea; No: Nausea, Vomiting Focused Exam Lactate Level 04/24/19 09:55: Lactic Acid Level 2.38*H 04/24/19 17:05: Lactic Acid Level 0.73 Objective Exam Vital Signs Date Time Temp Pulse Resp B/P (MAP) Pulse Ox O2 Delivery O2 Flow Rate FiO2 04/25/19 09:00 Room Air 04/25/19 08:00 98.1 61 20 100/62 (75) 100 Room Air 04/25/19 04:00 98.2 56 18 84/50 (61) 93 Room Air 04/25/19 00:00 98.5 62 18 89/52 (64) Room Air 04/24/19 21:00 96 Room Air 5.00 04/24/19 20:27 99.0 67 16 95/59 (71) 96 Room Air 04/24/19 15:40 Room Air 04/24/19 15:30 99.9 77 16 90/52 (65) 93 Room Air 04/24/19 14:05 Room Air 04/24/19 14:05 Room Air 04/24/19 13:50 OxyMask 5 04/24/19 13:50 99.9 16 97 Room Air 04/24/19 13:40 16 98 OxyMask 5 04/24/19 13:35 OxyMask 5 04/24/19 13:30 16 OxyMask 5 04/24/19 13:20 OxyMask 04/24/19 13:20 16 100 OxyMask 10 04/24/19 13:15 16 99 OxyMask 10 04/24/19 13:07 100.7 16 99 10 04/24/19 13:07 OxyMask 10 04/24/19 11:30 100.4 87 14 128/68 (88) 99 Room Air I & O 04/25/19 07:00 Intake Total 2940 ml Output Total 500 ml Balance 2440 ml Capillary Refill : Less Than 3 Seconds General Appearance: No Apparent Distress, WD/WN HEENT: PERRL/EOMI; No Pale Conjunctivae (L), No Pale Conjunctivae (R) Neck: Normal Inspection, Supple Respiratory: Chest Non Tender, No Accessory Muscle Use, No Respiratory Distress Gastrointestinal: normal bowel sounds, soft, distended (minimal distension ), tenderness (diffuse soreness with midline incisional tenderness. ), other (in cisions clean with overlying adhesive, no erythema or swelling) Neurologic/Psychiatric: Alert, Oriented x3, No Motor/Sensory Deficits, Normal Mood/Affect Skin: Normal Color, Warm/Dry, Other (as above, incisions clean, affixed with adhesive and showing no erythema or swelling) Results Lab Laboratory Tests 04/24/19 09:55: Lactic Acid Level 2.38*H 04/24/19 17:05: Lactic Acid Level 0.73 Assessment/Plan Assessment/Plan Assessment/Plan Acute Appendicitis 1 day S/P Appendectomy. Continue antibiotic treatment, pain control, and ambulation as tolerated. Consider discharging. Clinical Quality Measures DVT/VTE Risk/Contraindication: Risk Factor Score Per Nursin RFS Level Per Nursing on Admit: 2=Moderate IVÁN MACKEY DO 04/25/19 1459: Supervisory-Addendum Brief Verification & Attestation Participated in pt care: history, MDM, physical Personally performed: exam, history, MDM Care discussed with: Medical Student Procedures: n/a Verification and Attestation of Medical Student E/M Service A medical student performed and documented this service in my presence. I reviewed and verified all information documented by the medical student and made modifications to such information, when appropriate. I personally performed the physical exam and medical decision making. Iván Mackey, Apr 25, 2019,14:59 ASHLEY ROMERO,MED STUDENT Apr 25, 2019 09:50 IVÁN MACKEY DO Apr 25, 2019 14:59
[2019-04-25] MEDS ORDERED: ACHD5005 PO (11:05)
[2019-04-25] MEDS ORDERED: AMOX-358 PO (11:05)
--- NOTE | 2019-04-25 11:07 | Discharge Inst-Surgical ---
Discharge Inst-Surgical Depart Medication/Instructions New, Converted or Re-Newed RX: RX Given to Pt/Family Patient Instructions Follow up Appt: Make appointment for 1 week or when back from trip. [phone] Instructions: No lifting greater than 20 pounds. No strenuous activity. May shower in 24 hours, no tub bath or soaking. Use incentive spirometer at home as directed. No Smoking Skin/Wound Care: May remove bandages in am. You need to leave the Dermabond on incision it will fall off on it's own. Symptoms to Report: Appetite Changes, Extremity Discoloration, Numbness/Tingling, Swelling Increased, Bleeding Excessive, Eyesight Changes, Pain Increased, Urine Color Change, Constipation(Persistent), Fever over 101 degree F, Pain/Pressure in chest, Urinating Difficulty, Cough Up/Vomit Blood, Heart Beat Irreg/Pounding, Pain/Pressure in jaw, Cramps in feet or legs, Lightheadedness, Pain/Pressure in shoulder, Diarrhea(Persistent), Memory Changes Suddenly, Questions/Concerns, Weight gain consecutive days, Dizziness/Fainting, Nausea/Vomiting, Shortness of Breath, Weight gain over 2 pounds If questions or concerns contact your physician Or seek help at emergency department. Activity Activity as Tolerated: Yes Activity Instructions: Avoid Stress to Incision Driving Instructions: No Driving/Refer to Dr. Ulloa Discharge Diet: No Restrictions Diet After 24 Hours: Clear Liquid if Nauseous If Any Problems/Questions/Issu: Contact Your Physician, Go to Emergency Room Skin/Wound Care Infection Signs and Symptoms: Increased Redness, Foul Odor of Wound, Increased Drainage, Skin Itchy or Has a Rash, Increased Swelling, Temperature Above 101 F Bathing Instructions: Shower Stitches/Sandy/Dermabond Dis: Dermabond Ice Pack: Ice On and Off Site (as needed for pain) VIVIENNE BUSTILLOS DO Apr 25, 2019 11:07
--- NOTE | 2019-04-25 11:08 | NUR ---
Initial visit with the pt and her , Ronni. Pt is [employer] and a member of [employer] [employer] [facility] [employer]. The pt said she anticipated discharge today, and planned to walk the hallways this morning.
--- NOTE | 2019-04-25 11:24 | OPERATIVE REPORT ---
DATE OF SERVICE: 04/24/2019 PREOPERATIVE DIAGNOSIS: Acute appendicitis, possibly ruptured. POSTOPERATIVE DIAGNOSIS: Acute appendicitis, possibly ruptured with necrotic appendix down all the way to the base. PROCEDURE PERFORMED: Laparoscopic appendectomy with removal of very tiny portion of cecum. SURGEON: Iván Mackey DO TREATMENT COORDINATOR: Elias Raygoza, medical student, level 3. ANESTHESIA: General endotracheal tube. SPECIMEN: Appendix. BLOOD LOSS: Scant. FLUIDS: Per Anesthesia. POSTOPERATIVE CONDITION: Stable. INDICATION FOR PROCEDURE: The patient is a 58-year-old female who has been having some right lower quadrant pain since Thursday, finally came in and noted to have a CAT scan performed, which was read as acute, possibly perforated appendicitis. FINDINGS: The patient had appendix, almost the whole thing was necrotic all the way to the base. Right on the cecum, it looked like there was a small hole on the right towards the base of the appendix almost at the cecum. She had a lot of loops of bowel that were adhesed together, minimal murky fluid, did not really see any purulent fluid or fecal material in the abdomen. PROCEDURE NOTE: After informed consent was obtained, the patient was brought to the operating room, placed on operating table in supine position. She was sterilely prepped and draped in normal fashion. Local lidocaine was used to infiltrate the skin above the umbilicus and made an incision with #11 blade, carried down through the skin into the subcutaneous tissue and deepened down to subcutaneous tissue with Bovie electrocautery down to the fascia. Fascia was incised with Bovie electrocautery and bluntly entered the abdomen, swept a finger around, then placed #0 Vicryl [id number] suture and placed an 11 mm trocar port under direct visualization, created pneumoperitoneum and then placed 2 more ports in normal fashion using local lidocaine, 11 blade for stab incision and the VersaStep system, all done under direct visualization, one suprapubically and one in the left lower quadrant. The patient was then placed slightly Trendelenburg, noted some murky fluid in the pelvis, took a picture of this and then found the appendix, moved away some small intestine to find it. The entire appendix looked necrotic and was necrotic all the way down to the cecum. Able to identify the cecum and the terminal ileum, carefully started dissecting the appendix away with blunt dissection as well as with some hydrodissection and then coming across the mesoappendix with the LigaSure in a stepwise fashion, clamping, coagulating and transecting taking care again to stay away from terminal ileum and cecum. Once the appendix was completely freed up and noted there was necrotic all the way to the base, had switched to 5 mm camera and then brought an Endo-PATRICIA in the small portion of the cecum so we can get some good tissue. A clamp held for 30 seconds and then fired creating the staple line and dissecting, placed the bag in the abdomen, placed the appendix in the bag and then removed this through a supraumbilical incision. Placed the port back in the abdomen, had a good staple line at this point then copiously irrigated with normal saline about a liter and suctioned this out, opened all the bowel loops to make sure there is no purulent fluid or interloop abscesses and did not find any. I suctioned out all fluids. Placed the patient supine and then placed the omentum back over the portion of cecum and terminal ileum. At this point, I then removed all ports under direct visualization, allowed the pneumoperitoneum to escape, closed supraumbilical incision with #0 Vicryl, closing the fascia with #0 Vicryl suture previously placed. Copiously irrigated all incisions with normal saline, then closed the 2 small 5 mm incisions with a single interrupted 4-0 Monocryl subcuticular stitch, closed supraumbilical incision with 3 interrupted 4-0 Monocryl subcuticular stitches. Area was cleaned and dried and Dermabond was placed as well as Band-Aids. The patient tolerated the procedure well. Sponge, instrument and needle count correct at the end of the case. Job ID: [id number] DocumentID: [id number] Dictated Date: 04/24/2019 13:01:10 Tube Sizer And Cutter Operator Date: 04/24/2019 19:17:54 Dictated By: IVÁN MACKEY DO
[2019-04-25 11:41] VITALS: BP 100/62
--- NOTE | 2019-04-25 15:04 | Anesthesia-General Post-Op ---
General Patient Condition Mental Status/LOC: Same as Preop Cardiovascular: Satisfactory Nausea/Vomiting: Absent Respiratory: Satisfactory Pain: Controlled Complications: Absent Post Op Complications Complications None Follow Up Care/Instructions Patient Instructions None needed. Anesthesia/Patient Condition Patient Condition Patient discharged to home without any known complications and no apparent adverse anesthesia problems. No complications reported per nursing. PARKER LATHAM CRNA Apr 25, 2019 15:04
== END 2019-04-25 11:40 | disposition home or self-care (01) ==
LOC: EDUNIT# 07:18 → ER 07:19 → SDC 11:28 → 4TH 14:05 → SDC 04-25 11:40
PROVIDERS: ATTEND Surgery
DX: K35.20 Acute appendicitis with generalized peritonitis, without abscess (principal); K56.50 Intestinal adhesions [bands], unspecified as to partial versus complete obstruction; K21.9 Gastro-esophageal reflux disease without esophagitis; A41.9 Sepsis, unspecified organism; Z90.10 Acquired absence of unspecified breast and nipple; Z92.21 Personal history of antineoplastic chemotherapy; Z88.2 Allergy status to sulfonamides; Z79.82 Long term (current) use of aspirin
CPT/HCPCS: 36415; 74177; 80053; 81000; 83605; 83690; 85007; 85027; 87040; 94664

== ENCOUNTER → 2019-06-13 | Outpatient (CLI) | payer OTHER ==
[~2019-06-13] MED LIST changes: +ACHD5005 PO; +AMOX-358 PO
--- NOTE | 2019-06-13 15:48 | Diagnostic Imaging Report ---
INDICATION: Routine screening. COMPARISON: 06/10/2018 and 05/18/2017. TECHNIQUE: 2D and 3-D unilateral right screening mammography was performed with CAD. FINDINGS: The right breast remains heterogeneously dense, limiting the sensitivity of mammography. No mass or malignant appearing microcalcifications are seen. The right axilla is unremarkable. IMPRESSION: No mammographic features suspicious for malignancy are identified. ACR BI-RADS Category 1: Negative. Result letter will be mailed to the patient. Note: At least 10% of breast cancer is not imaged by mammography. Dictated by: Dictated on workstation # [id number]
== END ==
LOC: RAD 14:49
PROVIDERS: ATTEND Nurse Practitioner Adult Health
DX: Z12.31 Encounter for screening mammogram for malignant neoplasm of breast (principal)

== ENCOUNTER → 2020-06-14 | Outpatient (CLI) | payer OTHER ==
--- NOTE | 2020-06-15 09:21 | Diagnostic Imaging Report ---
INDICATION: Routine screening. Comparison is made with prior mammogram from 06/13/2019 and 06/10/2018. 2-D and 3-D unilateral right screening mammography was performed with CAD. The right breast is heterogeneously dense, limiting the sensitivity of mammography. The parenchymal pattern is stable. No mass or malignant appearing microcalcifications are seen. Right axilla is unremarkable. IMPRESSION: BI-RADS Category 1 No mammographic features suspicious for malignancy are identified. ACR BI-RADS Category 1: Negative. Result letter will be mailed to the patient. Note: At least 10% of breast cancer is not imaged by mammography. Dictated by: Dictated on workstation # [id number]
== END ==
LOC: RAD 15:00
PROVIDERS: ATTEND Internal Medicine Hematology & Oncology
DX: Z12.31 Encounter for screening mammogram for malignant neoplasm of breast (principal); Z85.3 Personal history of malignant neoplasm of breast
CPT/HCPCS: 77063